=== PATIENT | female | born 1945 | race Hispanic/Latino ===

== ENCOUNTER 2018-05-17 06:16 | Outpatient (CLI) | payer MEDICARE ==
[2018-05-17] MEDS ORDERED: NACL 0.9% 50 ML ONE (07:02)
[2018-05-17 07:20] LABS: Blood Urea Nitrogen 12 mg/dL (7-17)
--- NOTE | 2018-05-17 08:34 | Cat Scan Report ---
CT ABDOMEN WITH AND WITHOUT CONTRAST: HISTORY: Pancreatic lesion. COMPARISON: None at this facility. TECHNIQUE: Helical CT in 1.25mm intervals following IV contrast. Sagittal and coronal reconstructions. FINDINGS: Lung bases: Normal. Liver: Normal. Biliary system: Normal. Pancreas: A 1.6 cm cyst is identified in the body of the pancreas. The remainder of the pancreatic tissue is within normal limits. No suspicious mass, inflammatory changes or ductal dilatation. Spleen: Normal. Kidneys/ureters/bladder: Normal. Adrenal glands: Normal. Aorta: Normal. Intestines: The visualized bowel loops are normal caliber and wall thickness. There is mild fecal retention in the colon and a few scattered diverticula in the visualized ascending colon. Appendix: Not identified, correlate with surgical history. Ascites: None. Adenopathy: None. Musculoskeletal: Moderate lumbar spondylosis. No evidence for fracture or suspicious bony lesion. IMPRESSION: 1.6 cm pancreatic cyst as described. Mild diverticulosis of the colon.
== END 2018-05-17 06:17 | disposition home or self-care (01) ==
LOC: CT 06:16
PROVIDERS: ATTEND Family Medicine
DX: K86.2 Cyst of pancreas (principal); K57.90 Diverticulosis of intestine, part unspecified, without perforation or abscess without bleeding
CPT/HCPCS: 36415; 74170; 82565; 84520; Q9967